=== PATIENT | female | born 1990 | race Caucasian/White ===

== ENCOUNTER 2021-07-11 08:49 | Emergency (ER) | payer BC, OTHER ==
[2021-07-11 09:00] VITALS: BP 122/81; PULSE 91; RESP 16; TEMP 98.8
[2021-07-11] MEDS ORDERED: predniSONE 20 MG TAB PO STA (09:30)
--- NOTE | 2021-07-11 09:31 | ED ---
Skin/Abscess/FB HPI - General Chief complaint: Skin/Abscess/Foreign Body Stated complaint: allergic reaction Time Seen by Provider: 07/11/21 09:05 Source: patient, RN notes reviewed Limitations: no limitations - History of Present Illness Initial comments: 30-year-old female presents emergency Department with chief complaint of rash. Patient states that she started having this last day or so she was advised take Benadryl but it's doesn't stay away. Denies any difficulty breathing noted with swallowing she started Prozac 1 month ago but he told her was not related to this. Patient offers no complaints. - Related Data Home Medications Medication Instructions Recorded Confirmed diphenhydrAMINE [Benadryl] 25 mg PO BID PRN 06/14/15 06/14/15 Previous Rx's Medication Instructions Recorded Ibuprofen [Motrin] 600 mg PO Q6HR PRN #30 tab 06/15/15 predniSONE 50 mg PO DAILY #4 tab 07/11/21 Allergies Allergy/AdvReac Type Severity Reaction Status Date / Time clarithromycin Allergy Unknown Verified 07/11/21 09:00 lamotrigine [From Lamictal] Allergy Unknown Verified 07/11/21 09:00 Sulfa (Sulfonamide Allergy Unknown Verified 07/11/21 09:00 Antibiotics) Review of Systems ROS Statement: Those systems with pertinent positive or pertinent negative responses have been documented in the HPI. ROS Other: All systems not noted in ROS Statement are negative. Past Medical History Past Medical History: No Reported History History of Any Multi-Drug Resistant Organisms: None Reported Past Surgical History: Orthopedic Surgery Additional Past Surgical History / Comment(s): right ankle taken out some cartilidge Past Anesthesia/Blood Transfusion Reactions: No Reported Reaction Past Psychological History: Bipolar, Depression Smoking Status: Never smoker Past Alcohol Use History: Occasional Past Drug Use History: None Reported General Exam Limitations: no limitations General appearance: alert, in no apparent distress Head exam: Present: atraumatic, normocephalic, normal inspection Eye exam: Present: normal appearance, PERRL, EOMI. Absent: scleral icterus, conjunctival injection, periorbital swelling ENT exam: Present: normal exam, normal oropharynx, mucous membranes moist Neck exam: Present: normal inspection, full ROM. Absent: tenderness, meningismus, lymphadenopathy Respiratory exam: Present: normal lung sounds bilaterally. Absent: respiratory distress, wheezes, rales, rhonchi, stridor Cardiovascular Exam: Present: regular rate, normal rhythm, normal heart sounds. Absent: systolic murmur, diastolic murmur, rubs, gallop, clicks Neurological exam: Present: alert Skin exam: Present: warm, dry, intact, normal color, rash, urticaria Course Vital Signs 07/11/21 08:58 Temperature 98.8 F Pulse Rate 91 Respiratory 16 Rate Blood Pressure 122/81 O2 Sat by Pulse 99 Oximetry Medical Decision Making - Medical Decision Making Patient was placed on oral steroids continuation of antihistamines and return parameters discussed. Disposition Clinical Impression: Urticaria Disposition: HOME SELF-CARE Condition: Stable Instructions (If sedation given, give patient instructions): General Allergic Reaction (ED) Additional Instructions: Please return to the Emergency Department if symptoms worsen or any other nichol rns. Prescriptions: predniSONE 50 mg PO DAILY #4 tab Is patient prescribed a controlled substance at d/c from ED?: No Referrals: Robert Redd DO [Primary Care Provider] - 1-2 days Time of Disposition: 09:30
== END 2021-07-11 09:43 | disposition home or self-care (01) ==
LOC: EC 08:49
DX: L50.9 Urticaria, unspecified (principal); Z88.2 Allergy status to sulfonamides; Z88.1 Allergy status to other antibiotic agents; Z88.8 Allergy status to other drugs, medicaments and biological substances
CPT/HCPCS: 99282; J7512

== ENCOUNTER 2021-07-14 23:55 | Emergency (ER) | payer BC ==
[2021-07-15 00:10] VITALS: RESP 18; TEMP 98.2
--- NOTE | 2021-07-15 00:26 | ED ---
Allergic Reaction HPI - General Chief complaint: Allergic Reaction Stated complaint: Allergic Reaction Time Seen by Provider: 07/15/21 00:11 Source: patient Mode of arrival: ambulatory Limitations: no limitations - History of Present Illness Initial Comments: This patient is a 30-year-old woman who presents with complaint that she is having hives and a little bit of wheezing tonight along with chest tightness. She states it is similar to previous ALLERGIC reaction. She started having symptoms on Wednesday and she was seen here. She was given medications and was feeling better for a couple of days. Yesterday she noted more hives had developed and she was having some lip swelling. She had been given prednisone which she finished. She has been taking Benadryl and that seemed to help with the lip swelling. The hives have recurred tonight however and she was having some wheezing. No tongue swelling. No swelling in the throat. No nausea or v omiting. No diarrhea MD Complaint: allergic reaction, hives -: days(s) Exposure: unknown Symptoms: rash, itching Severity: moderate Treatment Prior to Arrival: benadryl, steroids Previous Allergy History: prior ED visit(s) - Related Data Home Medications Medication Instructions Recorded Confirmed diphenhydrAMINE [Benadryl] 25 mg PO BID PRN 06/14/15 06/14/15 Previous Rx's Medication Instructions Recorded Ibuprofen [Motrin] 600 mg PO Q6HR PRN #30 tab 06/15/15 predniSONE 50 mg PO DAILY #4 tab 07/11/21 predniSONE 60 mg PO DAILY #30 tab 07/15/21 Allergies Allergy/AdvReac Type Severity Reaction Status Date / Time clarithromycin Allergy Unknown Verified 07/15/21 00:10 lamotrigine [From Lamictal] Allergy Unknown Verified 07/15/21 00:10 Sulfa (Sulfonamide Allergy Unknown Verified 07/15/21 00:10 Antibiotics) Review of Systems ROS Statement: Those systems with pertinent positive or pertinent negative responses have been documented in the HPI. ROS Other: All systems not noted in ROS Statement are negative. Constitutional: Denies: fever, chills ENT: Denies: throat pain, congestion Respiratory: Reports: wheezes. Denies: cough, dyspnea Cardiovascular: Denies: chest pain, palpitations, edema Gastrointestinal: Denies: abdominal pain, nausea, vomiting, diarrhea Genitourinary: Denies: dysuria, hematuria Musculoskeletal: Denies: back pain Skin: Reports: rash Neurological: Denies: headache, weakness Past Medical History Past Medical History: No Reported History History of Any Multi-Drug Resistant Organisms: None Reported Past Surgical History: Orthopedic Surgery Additional Past Surgical History / Comment(s): right ankle taken out some cartilidge Past Anesthesia/Blood Transfusion Reactions: No Reported Reaction Past Psychological History: Bipolar, Depression Smoking Status: Never smoker Past Alcohol Use History: Occasional Past Drug Use History: None Reported General Exam Limitations: no limitations General appearance: alert, in no apparent distress Head exam: Present: atraumatic, normocephalic Eye exam: Present: normal appearance. Absent: scleral icterus, conjunctival injection ENT exam: Present: normal oropharynx Neck exam: Present: normal inspection Respiratory exam: Present: wheezes. Absent: respiratory distress, rales, rhonchi, stridor, accessory muscle use, decreased breath sounds, prolonged expiratory Cardiovascular Exam: Present: regular rate, normal rhythm, normal heart sounds. Absent: systolic murmur, diastolic murmur, rubs, gallop GI/Abdominal exam: Present: soft. Absent: distended, tenderness, guarding, rebound, rigid, mass Extremities exam: Present: normal inspection, normal capillary refill. Absent: pedal edema, calf tenderness Neurological exam: Present: alert Skin exam: Present: warm, dry, intact, urticaria. Absent: cyanosis, diaphoretic, erythema, vesicles, petechiae, pallor, mottled Course Vital Signs 07/15/21 07/15/21 07/15/21 00:08 00:59 01:08 Temperature 98.2 F Pulse Rate 75 65 84 Respiratory 18 Rate Blood Pressure 148/87 O2 Sat by Pulse 96 Oximetry Medical Decision Making - EKG Data -: EKG Interpreted by Ct EKG shows normal: sinus rhythm, axis (Normal), intervals (Normal), QRS complexes (Normal), ST-T waves (Normal) Rate: normal (Rate 64 bpm) Interpretation: normal EKG Disposition Clinical Impression: Allergic reaction Disposition: HOME SELF-CARE Condition: Good Instructions (If sedation given, give patient instructions): General Allergic Reaction (ED) Prescriptions: predniSONE 60 mg PO DAILY #30 tab Is patient prescribed a controlled substance at d/c from ED?: No Referrals: Robert Redd DO [Primary Care Provider] - 1-2 days Evelyn Fay MD [STAFF PHYSICIAN] - 1-2 days
[2021-07-15] MEDS ORDERED: ALBUTEROL NEBULIZED 2.5 MG/3 ML INHALATION STA (00:31)
[2021-07-15] MEDS ORDERED: diphenhydrAMINE 50 MG CAP PO STA (00:31)
[2021-07-15] MEDS ORDERED: FAMOTIDINE 20 MG TAB PO STA (00:31)
[2021-07-15] MEDS ORDERED: predniSONE 20 MG TAB PO STA (00:31)
[2021-07-15 01:09] VITALS: PULSE 84
[2021-07-15 01:58] VITALS: BP 113/71
== END 2021-07-15 01:58 | disposition home or self-care (01) ==
LOC: EC 23:55
DX: T78.40XA Allergy, unspecified, initial encounter (principal); R06.2 Wheezing; R07.89 Other chest pain; Z88.2 Allergy status to sulfonamides; Z88.1 Allergy status to other antibiotic agents; Z88.8 Allergy status to other drugs, medicaments and biological substances
CPT/HCPCS: 94640; 93005; 99284; J7512

== ENCOUNTER 2022-07-12 19:54 | Outpatient (CLI) | payer BC ==
[2022-07-12 22:11] VITALS: BP 110/61; PULSE 100; RESP 16; TEMP 98.1
--- NOTE | 2022-07-14 07:27 | P.MSEPDOC ---
Presenting Problems - Arrival Data Date of Arrival on Unit: 07/12/22 Time of Arrival on Unit: 19:54 Mode of Transport: Ambulatory - Complaint OB-Reason for Admission/Chief Complaint: Rule Out SROM Medical History - Information : 3 Para: 2 Term: 2 : 0 Abortions: Spontaneous or Elective: 0 Number of Living Children: 2 - Gestational Age Gestational Age by ALLEGRA (wks/days): 39 Weeks and 0 Days Review of Systems - Review of Systems Constitutional: No problems Breast: No problems ENT: No problems Cardiovascular: No problems Respiratory: No problems Gastrointestinal: No problems Genitourinary: No problems Musculoskeletal: No problems Neurological: No problems Skin: No problems Vital Signs - Temperature Temperature: 98.1 F Temperature Source: Oral - Pulse Right Sitting Pulse Rate: 100 Pulse Assessment Method: Automatic Cuff - Respirations Respiratory Rate: 16 Oxygen Delivery Method: Room Air O2 Sat by Pulse Oximetry: 97 - Blood Pressure Right Arm Sitting Blood Pressure: 110/61 Blood Pressure Mean: 77 Blood Pressure Source: Automatic Cuff Medical Screen Scoring - Cervical Exam Dilation (cm): 2 Effacement (%): 50 Membranes: Intact - Assessment - Baby A Baseline FHR: 135 Heart Rate - NICHD Category: Category I (Normal) Physician Notification - Physician Notified Physician Notified Date: 07/12/22 Physician Notified Time: 20:54 Physician: Susy Sheets Maternal Triage Index - Maternal Triage Index Presenting for scheduled procedure w/no complaint: No - Stat/Priority 1 Stat Priority 1: No - Urgent/Priority 2 Urgent Priority 2: No - Prompt/Priority 3 Prompt Priority 3: No - Non-Urgent/Priority 4 Non-Urgent Priority 4: Yes Criteria Met for Priority 4: possible srom Disposition - Disposition OB Disposition: Discharge to home, Written follow up instructions reviewed Discharge Date: 07/12/22 Discharge Time: 21:00 I agree with the RN Medical Screening Exam: Yes Case reviewed; plan agreed upon as documented in EMR&OBIX.: Yes Diagnosis: FALSE LABOR AT OR AFTER 37 COMPLETED WEEKS OF GESTATION
== END 2022-07-12 21:00 | disposition home or self-care (01) ==
LOC: FBPOP 19:54
PROVIDERS: ATTEND Obstetrics & Gynecology
DX: O47.1 False labor at or after 37 completed weeks of gestation (principal); Z3A.39 39 weeks gestation of pregnancy
CPT/HCPCS: 59025; 84112; 99213

== ENCOUNTER 2022-07-14 05:52 | Inpatient (IN) | payer BC ==
--- NOTE | 2022-07-13 12:32 | P.HPOB ---
History of Present Illness H&P Date: 07/13/22 Chief Complaint: Requested induction of labor. This patient is a pleasant 31-year-old 3 para 2 female estimated date of confinement 07/19/2022 estimated gestational age 39-2/7 weeks who presents to labor and delivery for requested induction of labor. Renal care has been uncomplicated. Review of Systems Genitourinary: Reports Menstruation: Reports amenorrhea Past Medical History Past Medical History: No Reported History History of Any Multi-Drug Resistant Organisms: None Reported Past Surgical History: Orthopedic Surgery Additional Past Surgical History / Comment(s): right ankle taken out some cartilidge Past Anesthesia/Blood Transfusion Reactions: No Reported Reaction Past Psychological History: Bipolar, Depression Smoking Status: Never smoker Past Alcohol Use History: Occasional Past Drug Use History: None Reported Medications and Allergies Allergies Allergy/AdvReac Type Severity Reaction Status Date / Time clarithromycin Allergy Unknown Verified 07/15/21 00:10 lamotrigine [From Lamictal] Allergy Unknown Verified 07/15/21 00:10 Sulfa (Sulfonamide Allergy Unknown Verified 07/15/21 00:10 Antibiotics) Exam - OBG Physical Exam Abdomen: bowel sounds normal, no diffuse tenderness, no bruit present, no guarding noted, no hepatomegaly, no splenomegaly, no mass Vulva: both: normal Vagina: normal moisture, no discharge Cervix: no lesion (Cervix is 2-3 cm soft.), no discharge Uterus: enlarged (Fundal height 38 cm) Results blood work shows she is A-, rubella immune, RPR nonreactive, hepatitis B is negative, HIV is nonreactive, group B strep was negative, Glucola was normal, patient received RhoGAM on May 05. Most recent ultrasound showed baby to be 5 lbs. 15 oz. with this 50 percentile at 35 week Assessment and Plan Assessment: This is a pleasant 31-year-old 3 para 2 female 39-2/7 weeks gestation who is admitted to labor and delivery for requested induction of labor. Plan is induction of labor and anticipate vaginal delivery. (1) 39 weeks gestation of Status: Acute Code(s): Z3A.39 - 39 WEEKS GESTATION OF SNOMED Code(s): 01958112 (2) Elective induction of labor planned Status: Acute Code(s): FCU9378 - SNOMED Code(s): 118580443 (3) Rh negative status during Status: Chronic Code(s): O09.899 - SUPERVISION OF OTHER HIGH RISK PREGNANCIES, UNSP TRIMESTER SNOMED Code(s): 129963813
[2022-07-14] MEDS ORDERED: METHYLERGONOVINE 0.2 MG/ML 1 ML AMP IM PRN (06:08)
[2022-07-14] MEDS ORDERED: TERBUTALINE 1 MG/ML VIAL SQ PRN (06:08)
[2022-07-14] MEDS ORDERED: OXYTOCIN 30 UNITS/500 ML NS 30 UNIT in SALINE 1 500ML.BAG IV SCH ×2 (06:08→19:01)
[2022-07-14] MEDS ORDERED: OXYTOCIN 10 UNIT/ML 1 ML VIAL IM PRN (06:08)
[2022-07-14] MEDS ORDERED: CARBOPROST TROMETHAMINE 250 MCG/ML 1 ML AMP IM PRN (06:08)
[2022-07-14] MEDS ORDERED: LIDOCAINE 0.5% (PF) 5 MG/ML (50 ML SDV) SQ PRN (06:08)
[2022-07-14] MEDS: LACTATED RINGERS 1,000 ML IV SCH ×3 (06:20→15:09)
[2022-07-14 06:31] LABS: Basophils # (A) 0.1 k/uL (0-0.2); Basophils % (A) 1 %; Eosinophils # (A) 0.2 k/uL (0-0.7); Eosinophils % (A) 2 %; HCT 33.8 % (34.0-46.0); HGB 11.1 gm/dL (11.4-16.0); Lymphocytes % (A) 26 %; MCH 27.9 pg (25.0-35.0); MCV 84.6 fL (80.0-100.0); Mean Platelet Volume 7.3; Monocytes # (A) 0.6 k/uL (0-1.0); Monocytes % (A) 5 %; Neutrophils # (A) 7.5 k/uL (1.3-7.7); Neutrophils % (A) 65 %; Platelet Count 292 k/uL (150-450); Poikilocytosis Slight; RBC 3.99 m/uL (3.80-5.40); RDW 14.9 % (11.5-15.5); WBC 11.6 k/uL (3.8-10.6)
[2022-07-14] MEDS ORDERED: ROPIVACAINE 5 MG/ML 20 ML AMPULE ONE (14:21)
[2022-07-14] MEDS ORDERED: SODIUM CHLORIDE 0.9% 100 ML BAG ONE (14:21)
[2022-07-14] MEDS ORDERED: fentaNYL (PF) 50 MCG/ML 5 ML AMP ONE (14:21)
[2022-07-14] MEDS ORDERED: ZOLPIDEM 5 MG TAB PO PRN (19:01)
[2022-07-14] MEDS ORDERED: LANOLIN CREAM 5 GM TUBE TOPICAL PRN (19:01)
[2022-07-14] MEDS ORDERED: HYDROCORTISONE 2.5% RECTAL CREAM 30 GM TUBE RECTAL PRN (19:01)
[2022-07-14] MEDS ORDERED: SIMETHICONE 80 MG CHEWABLE PO PRN (19:01)
[2022-07-14] MEDS ORDERED: BENZOCAINE/MENTHOL SPRAY 1 GM/SPRAY AEROSOL TOPICAL PRN (19:01)
[2022-07-14] MEDS ORDERED: diphenhydrAMINE 50 MG/ML 1 ML VIAL IVP PRN (19:01)
[2022-07-14] MEDS ORDERED: diphenhydrAMINE 25 MG CAP PO PRN (19:01)
[2022-07-14] MEDS ORDERED: bisacodyL 10 MG SUPP RECTAL PRN (19:01)
[2022-07-14] MEDS ORDERED: Rhogam IMMUNE GLOBULIN 1,500 UNIT/1 ML IM ONE (19:01)
--- NOTE | 2022-07-14 19:08 | P.PROBDLV ---
Vaginal Delivery Note - . Vaginal Delivery Note: Normal vaginal delivery viable male infant Apgars 9 and 9 delivery time is 1845 hrs. Please see dictated H&P for intimate details of this patient's admission. Brief summary is a pleasant 31-year-old 3 para 2 female 39-2/7 weeks gestation who is admitted to labor and delivery for elective induction of labor. On admission patient is 3 cm dilated has artificial rupture membranes for clear fluid. Labor is induced with Pitocin per protocol. Labor progresses and she does get an epidural for pain control. Patient does get to complete pushes the head to the perineum. Posterior perineum is supported we have controlled delivery of the 's head over the intact perineum. Mouth and nares are bulb suctioned. There is a nuchal cord which is reduced. We then have delivery of the anterior and posterior shoulder without any effort.. This is a vigorous viable male Apgars are 9 and 9 delivery time is 1845 hrs. After delivery of the infant the is late on the mother's abdomen. After the umbilical cord is done pulsating is doubly clamped and cut appears to be trivascular. The placenta is then spontaneously delivered intact. Estimated blood loss is 100 mL. Inspection of perineum shows superficial laceration no repairs required. All counts are correct 3. There are no complications. Infant and mother stable delivery room.
[2022-07-14] MEDS: IBUPROFEN 600 MG TAB PO PRN (20:03)
[2022-07-14] MEDS: SENNOSIDES-DOCUSATE SODIUM 1 EACH TAB PO SCH (20:35)
[2022-07-15] MEDS: IBUPROFEN 600 MG TAB PO PRN ×4 (03:53→23:55)
--- NOTE | 2022-07-15 07:00 | P.PNOBGVD ---
Subjective - Subjective Patient reports: Reports appetite normal, Reports voiding normally, Reports pain well controlled, Reports ambulating normally : doing well Objective - Latest Vital Signs Latest vital signs: Vital Signs Temp Pulse Resp BP 07/15/22 04:00 97.8 F 75 16 102/68 07/14/22 23:36 98.6 F 88 16 108/67 07/14/22 20:53 98.5 F 93 16 112/58 07/14/22 20:23 100 16 120/63 07/14/22 19:53 98 16 117/62 07/14/22 19:38 99 16 111/55 07/14/22 19:23 98 16 117/61 07/14/22 19:08 101 H 16 113/54 07/14/22 18:50 104 H 16 120/57 Intake and Output 07/14/22 07/15/22 07/15/22 22:59 06:59 14:59 Intake Total 191 Output Total 115 Balance 76 Intake: Intake, IV Titration 191 Amount Oxytocin 30 Units/500 ml 191 Ns 30 unit In Saline 1 500ml.bag @ Per Protocol IV .Q0M COUNTS INCLUDE 234 BEDS AT THE [facility] Rx#:[id number] Output: Output, Quantitative 115 Blood Loss Other: # Voids 1 1 - Exam Lungs: bilateral: normal Chest: Normal S1, Normal S2 Extremities: Present: normal Abdomen: Present: normal appearance, soft Uterus: Present: normal, firm Assessment and Plan Assessment: Post day #1. Patient is resting without complaints and wishes to go home. Vital signs are stable she's afebrile. Uterus is firm nontender she is having normal lochia. My impression this is a normal course. Plan is to continue routine care discharge home later today. (1) 39 weeks gestation of Current Visit: No Status: Acute Code(s): Z3A.39 - 39 WEEKS GESTATION OF SNOMED Code(s): 50632641 (2) Elective induction of labor planned Current Visit: No Status: Acute Code(s): DXS5150 - SNOMED Code(s): 221222713 (3) Rh negative status during Current Visit: No Status: Chronic Code(s): O09.899 - SUPERVISION OF OTHER HIGH RISK PREGNANCIES, UNSP TRIMESTER SNOMED Code(s): 973838756
--- NOTE | 2022-07-15 07:13 | P.DS ---
Providers Date of admission: 07/14/22 05:52 Expected date of discharge: 07/15/22 Attending physician: Alirio Moore Primary care physician: Stated None - Discharge Diagnosis(es) (1) 39 weeks gestation of Current Visit: No Status: Acute (2) Elective induction of labor planned Current Visit: No Status: Acute (3) Rh negative status during Current Visit: No Status: Chronic Hospital Course: Please see dictated H&P for intimate details of this patient's admission. Brief summary is a pleasant 31-year-old 3 para 2 female 39-2/7 weeks gestation admitted to labor and delivery for elective induction of labor. Patient is admitted she is uncomplicated induction of labor was on have a vaginal delivery viable male infant. Please see dictated delivery note. day #1 patient's feeling well wishes to go home. Patient's felt to be stable for discharge home follow up with me in 6 weeks. Procedures: Induction of labor and normal vaginal delivery Patient Condition at Discharge: Good Plan - Discharge Summary New Discharge Prescriptions: New Ibuprofen [Motrin] 600 mg PO Q6HR PRN #30 tab PRN Reason: Mild Pain (Scale 1 To 3) Discharge Medication List Ibuprofen [Motrin] 600 mg PO Q6HR PRN #30 tab 07/15/22 [Rx] Follow up Appointment(s)/Referral(s): Alirio Moore MD [STAFF PHYSICIAN] - 09/01/22 9:45 am Patient Instructions/Handouts: Vaginal Delivery (DC) Activity/Diet/Wound Care/Special Instructions: No intercourse or anything per vagina for 6 weeks. Please call if any fever, chills, excessive vaginal bleeding, and/or abdominal pain Discharge Disposition: HOME SELF-CARE
[2022-07-15 07:58] LABS: Basophils % (A) 0 %; Eosinophils # (A) 0.1 k/uL (0-0.7); Eosinophils % (A) 1 %; HCT 29.5 % (34.0-46.0); HGB 10.1 gm/dL (11.4-16.0); Hypochromasia Slight; Lymphocytes # (A) 2.4 k/uL (1.0-4.8); Lymphocytes % (A) 16 %; MCH 29.4 pg (25.0-35.0); MCHC 34.4 g/dL (31.0-37.0); MCV 85.5 fL (80.0-100.0); Mean Platelet Volume 7.3; Monocytes # (A) 0.8 k/uL (0-1.0); Monocytes % (A) 5 %; Neutrophils % (A) 75 %; Platelet Count 231 k/uL (150-450); Poikilocytosis Slight; RBC 3.45 m/uL (3.80-5.40); RDW 15.3 % (11.5-15.5); WBC 14.6 k/uL (3.8-10.6)
[2022-07-15] MEDS: SENNOSIDES-DOCUSATE SODIUM 1 EACH TAB PO SCH ×2 (12:10→19:50)
[2022-07-15] MEDS: ACETAMINOPHEN TAB 325 MG TAB PO PRN (21:19)
[2022-07-16] MEDS: ACETAMINOPHEN TAB 325 MG TAB PO PRN (03:27)
[2022-07-16 08:14] VITALS: BP 105/71; PULSE 62; RESP 16; TEMP 97.9
[2022-07-16] MEDS: SENNOSIDES-DOCUSATE SODIUM 1 EACH TAB PO SCH (14:34)
== END 2022-07-16 16:10 | disposition home or self-care (01) | DRG 807 ==
LOC: 4FBP 05:52
PROVIDERS: ADMIT Obstetrics & Gynecology; ATTEND Obstetrics & Gynecology
PROC: 10E0XZZ Delivery of Products of Conception, External Approach (ICD-10-PCS; principal; 2022-07-14)
PROC: 3E033VJ Introduction of Other Hormone into Peripheral Vein, Percutaneous Approach (ICD-10-PCS; 2022-07-14)
PROC: 10907ZC Drainage of Amniotic Fluid, Therapeutic from Products of Conception, Via Natural or Artificial Opening (ICD-10-PCS; 2022-07-14)
PROC: 4A0HXCZ Measurement of Products of Conception, Cardiac Rate, External Approach (ICD-10-PCS; 2022-07-14)
DX: O69.81X0 Labor and delivery complicated by cord around neck, without compression, not applicable or unspecified (principal); Z37.0 Single live birth; Z67.91 Unspecified blood type, Rh negative; O26.893 Other specified pregnancy related conditions, third trimester; O99.344 Other mental disorders complicating childbirth; F31.9 Bipolar disorder, unspecified; Z3A.39 39 weeks gestation of pregnancy; Z88.2 Allergy status to sulfonamides; Z88.1 Allergy status to other antibiotic agents; Z88.8 Allergy status to other drugs, medicaments and biological substances; Z91.040 Latex allergy status
CPT/HCPCS: 85025; 86850; 86900; 86901

== ENCOUNTER → 2023-02-18 | Outpatient (CLI) | payer BC ==
[2023-02-18 22:49] LABS: MCHC 32.5 g/dL (32.0-37.0); MCV 86.2 fL (80.0-97.0); Mean Platelet Volume 10.4 fL (9.5-12.2); NRBC Per 100 WBC 0 /100 WBCS (0.0-0.0); Platelet Count 275 X 10*3/uL (140-440); RBC 4.64 X 10*6/uL (4.10-5.20); RDW 13.5 % (11.5-14.5); WBC 8.36 X 10*3/uL (4.50-10.00)
[2023-02-18 23:13] LABS: Estradiol 86.1 pg/mL; Luteinizing Hormone 14.6 mIU/mL; Prolactin 12.4 ng/mL (2.800-29.200)
[2023-02-18 23:22] LABS: African American GFR (CKD) 134.8 (60.0-200.0); Albumin 4.6 g/dL (3.8-4.9); Albumin/Globulin Ratio 1.86 (1.60-3.17); Anion Gap 11.2 mmol/L (10.00-18.00); BUN/Creat Ratio 21.78 Ratio (12.00-20.00); Blood Urea Nitrogen 14.9 mg/dL (9.0-27.0); Calcium 9.7 mg/dL (8.7-10.3); Carbon Dioxide 26.9 mmol/L (20.0-27.5); Follicle Stimulating Hormone 5.5 mIU/mL; Globulin 2.5 g/dL (1.6-3.3); Non-African American GFR(CKD) 116.3 (60.0-200.0); Potassium 3.8 mmol/L (3.5-5.5); T4, Free (Free Thyroxine) 1.03 ng/dL (0.800-1.800); Total Bilirubin 0.3 mg/dL (0.30-1.20)
[2023-02-19 00:15] LABS: Thyroid Peroxidase Antibodies 10.1 U/mL (0.0-33.0)
[2023-02-19 03:08] LABS: ACTH 11.8 pg/mL (0.00-45.99)
== END | disposition home or self-care (01) ==
LOC: LABWHC1 15:47
PROVIDERS: ATTEND Internal Medicine Endocrinology, Diabetes & Metabolism
DX: N92.6 Irregular menstruation, unspecified (principal); R53.83 Other fatigue
CPT/HCPCS: 36415; 80053; 82024; 82533; 82607; 82626; 82670; 83001; 83002; 84146; 84439; 84443; 84480; 85027; 86376